=== PATIENT | female | born 1940 | race Caucasian/White ===

== ENCOUNTER 2018-03-17 14:04 | Emergency (ER) | payer OTHER, MEDICARE ==
[~2018-03-17 14:04] MED LIST: CARAFATE1 GM/10 M1 PO
--- NOTE | 2018-03-17 14:26 | ED GENERAL ADULT ---
History of Present Illness General Chief Complaint: Fall Stated Complaint: BIBA RT SHOULDER PAIN/BACK PAIN S/P FALL Source: patient, family Exam Limitations: no limitations Vital Signs & Intake/Output Vital Signs & Intake/Output Vital Signs Date Time Temp Pulse Resp B/P B/P Pulse O2 O2 Flow FiO2 Mean Ox Delivery Rate 03/17 1817 98.3 74 20 129/60 95 Room Air 03/17 1413 98.0 75 17 157/72 94 Room Air Allergies Coded Allergies: aspirin (Intermediate, RASH 07/24/17) black pepper (Intermediate, HIVES 07/24/17) Reconcile Medications Clorazepate Dipotassium 7.5 MG TABLET 1 TAB PO DAILY UNKNOWN (Reported) Escitalopram Oxalate 10 MG TABLET 1 TAB PO DAILY MENTAL HEALTH (Reported) Ezetimibe (Zetia) 10 MG TABLET 1 TAB PO DAILY CHOLESTEROL (Reported) Rosuvastatin Calcium (Crestor) 40 MG TABLET 1 TAB PO DAILY CHOLESTEROL ( Reported) Tramadol HCl 50 MG TABLET 1 TAB PO Q12 PAIN NOT RESPONSDING TO [facility] Triage Note: PT TO ED WITH C/O RIGHT SHOULDER PAIN AND RIGHT BACK S/P MECHANICAL TRIP AND FALL AT HOME. PT WAS CLEANING HER PORCH WHEN SHE TRIPPED OVER A VACUUM AND FELL INTO STEP ON RIGHT SIDE. BRUISE NOTED TO FOREHEAD WELL. PT DENIES LOC OR BLOOD THINNERS. SLING APPLIED TO RIGHT ARM BY EMS. PT AMBULATORY AT SCENE. DENIES CERVICAL TENDERNESS. Triage Nurses Notes Reviewed? yes Onset: Abrupt Duration: hour(s): Timing: recent history HPI: 03/17/18 2:33 PM 77-year-old female status post mechanical fall on her porch complains of severe right shoulder pain she also hit her right ribs. She denies any abdominal pain , chest pain, neck pain or headache. She was on her porch swatting bee's, she lost her balance and fell onto her extended right arm. Past History Travel History Traveled to [place] past 21 day No Medical History Any Pertinent Medical History? see below for history Neurological: NONE EENT: NONE Cardiovascular: hyperlipidemia Respiratory: bronchitis, pneumonia Gastrointestinal: NONE Hepatic: NONE Renal: NONE Musculoskeletal: NONE Psychiatric: NONE Endocrine: NONE Blood Disorders: NONE Cancer(s): COLON CA NURSE SUBSTANCE ABUSE/Reproductive: NONE Surgical History Surgical History: non-contributory Psychosocial History What is your primary language Spanish Tobacco Use: Never used Family History Hx Contributory? No Review of Systems Review of Systems Constitutional: Denies: fever. EENTM: Denies: visual changes. Respiratory: Denies: short of breath. Cardiovascular: Denies: chest pain. GI: Denies: abdominal pain. Genitourinary: Reports: no symptoms. Musculoskeletal: Reports: see HPI. Skin: Denies: rash. Neurological/Psychological: Reports: no symptoms. Hematologic/Endocrine: Reports: no symptoms. Immunologic/Allergic: Reports: no symptoms. Physical Exam Physical Exam General Appearance: alert, awake, anxious, moderate distress Head: normal appearance, contusions Eyes: Bilateral: normal appearance, PERRL, EOMI. Ears, Nose, Throat: normal pharynx, normal ENT inspection Neck: normal inspection, supple Respiratory: normal breath sounds, chest non-tender, no respiratory distress Cardiovascular: regular rate/rhythm Peripheral Pulses: 4+ radial (R) Gastrointestinal: soft, non-tender Back: normal range of motion Extremities: swelling, tenderness (right shoulder) Neurologic/Psych: no motor/sensory deficits, awake, alert, oriented x 3 Skin: intact, normal color, warm/dry Core Measures ACS in differential dx? No CVA/TIA Diagnosis: No Sepsis Present: No Sepsis Focused Exam Completed? No Progress Differential Diagnoses I considered the following diagnoses in my evaluation of the patient: [Fracture, dislocation, head injury, other occult injuries] Plan of Care: Current Medications Sig/Ryan Start time Last Medication Dose Stop Time Status Admin Sodium Chloride 1,000 ML ONCE ONE 03/17 1445 AC 03/17 (Normal Saline 0.9%) 03/17 2124 1451 Initial ED EKG: none Departure Departure Disposition: STILL A PATIENT Condition: Stable Clinical Impression Primary Impression: Proximal humerus fracture Secondary Impressions: Anterior dislocation of shoulder Referrals: Emeka DE LOS SANTOS,Kevin Gonsalez (PCP/Family) Departure Forms: Customer Survey General Discharge Information Prescriptions: Current Visit Scripts Tramadol HCl 1 TAB PO Q12 #8 TAB Comments TECHNIQUE: Three views of the right shoulder. 4 views of the right elbow FINDINGS: Right shoulder: Moderate osteophytosis is present at the acromioclavicular joint. There is been successful reduction of the humeral head at the glenoid fossa. The avulsed fracture at the greater tuberosity measures 2.3 cm AP and is displaced cephalad by 5 mm. Minimal glenohumeral osteophytes. No Bankart fractures are identified. Soft tissues are swollen. Right elbow: No acute fracture or malalignment. Chronic ossific densities at the lateral humeral epicondyle are consistent with prior common extensor tendinosis and enthesopathy. No acute fractures are identified. No joint effusion. Minimal osteoarthritis is characterized by small marginal osteophytes. No joint space narrowing. IMPRESSION: 1. Successful reduction of the right shoulder. Greater tuberosity fracture fragment is mildly displaced. No appreciable Bankart fracture. 2. Minimal osteoarthritis of the right elbow. No elbow fracture or effusion. DICTATED BY: Caleb Christian MD DATE/TIME DICTATED:03/17/181705 SQL PROGRAMMER:ADRIANNE DATE/TIME TRANSCRIBED:03/17/181705 CONFIDENTIAL, DO NOT COPY WITHOUT APPROPRIATE AUTHORIZATION. <Electronically signed in Other Vendor System> SIGNED BY: Caleb Christian MD 03/17/181712 PATIENT: LEATHA DUQUE PRESENT AGE: 77 PATIENT ACCOUNT NO: [id number] : 42 LOCATION: [facility] ORDERING PHYSICIAN: Kenny MANLEY SERVICE DATE: 03/17/18 EXAM TYPE: CAT - CT ABD & PELVIS W/O IV CONTRAS; CT CHEST WO IV CONTRAST EXAMINATION: CT CHEST WITHOUT CONTRAST CT ABDOMEN AND PELVIS WITHOUT CONTRAST CLINICAL INFORMATION: Thoracic pain after fall. Low back pain after fall. Dislocated shoulder. COMPARISON: CT lumbar spine dated 09/09/2011. TECHNIQUE: Multidetector volumetric imaging was performed from the thoracic inlet through the pubic symphysis without intravenous contrast. Sagittal and coronal reformatted images were obtained on the technologist's workstation. DLP: 349.7 mGy-cm FINDINGS: -CHEST- LUNG: Minimal dependent atelectasis. No consolidation, pneumothorax, or pleural effusion. Central airways are clear. Linear atelectasis is present in the inferior aspect of the anterior segment of the right upper lobe as well. MEDIASTINUM: Calcific atherosclerosis is present in the thoracic aorta. Thoracic aorta is normal in size. No evidence of mediastinal vascular injury. No fluid collections. Heart is normal in size. No pericardial effusion. Thyroid gland is unremarkable. No mediastinal adenopathy is apparent. PERICARDIUM/PLEURA: No significant effusion. No pleural mass or thickening. CHEST WALL/AXILLA: Unremarkable. -ABDOMEN/PELVIS- LIVER, GALLBLADDER, BILIARY TREE: The liver is normal in size, shape, and attenuation. No focal hepatic lesion or biliary ductal dilatation is present. The gallbladder is unremarkable with no evidence of radiopaque gallstones, gallbladder wall thickening, or obvious pericholecystic inflammatory changes. PANCREAS: Unremarkable. SPLEEN: Unremarkable. ADRENAL GLANDS: Unremarkable. KIDNEYS AND URETERS: There is a large 4.5 cm water density (12 Hounsfield units) left parapelvic cysts. Kidneys are normal in size with normal cortical thickness. No hydronephrosis or urolithiasis. No perinephric stranding. BLADDER: Unremarkable. GASTROINTESTINAL TRACT: Stomach, small bowel, and colon are normal in caliber. Ileocolonic anastomosis is present in the central abdomen with absence of the right hemicolon, consistent with prior partial colectomy. No bowel wall thickening or surrounding inflammatory changes. No intraperitoneal free fluid or free air. ABDOMINAL WALL: No significant hernia is appreciated. VASCULATURE: Atherosclerotic calcifications are present in the abdominal aorta and iliac arteries. No aneurysmal dilatation. LYMPH NODES: No lymphadenopathy . PELVIC VISCERA: A calcified uterine fibroid is present at the anterior aspect of uterine body. Uterus appears relatively small. Ovaries are not well seen and are unremarkable. OSSEUS STRUCTURES: Right humeral head is appropriately situated at the glenoid. A fracture of the right greater tuberosity is partially imaged on this study. A fat fluid level is present in the overlying subacromial subdeltoid bursa. No additional fractures are identified in the chest. The ribs appear intact. There is mild degenerative spondylosis in the thoracic spine. More moderate degenerative disc disease is present in the lumbar spine at L3-L4 and L4-5 with grade 1 anterolisthesis of L4 on L5 and L5 on S1 as well as severe facet arthropathy at these levels. More mild degenerative disc disease is present at other levels. No acute fractures are identified. Vertebral body heights are normal. Hip joints appear relatively well-preserved. No proximal femoral fractures are identified. IMPRESSION: 1. Partial imaging of the right humeral head fracture. Humeral head is appropriately positioned at the glenoid without evidence of a Bankart fracture. 2. Otherwise, no additional acute abnormalities are identified in the chest, abdomen, and pelvis 3. Mild degenerative disc disease in the thoracic spine. No fractures. 4. Moderate degenerative disc disease and severe facet arthropathy in the lumbar spine at L3-L4 and L4-5 with grade 1 anterolisthesis of L3 on L4 and L4 on L5. 5. Calcific uterine fibroid. DICTATED BY: Caleb Christian MD DATE/TIME DICTATED:03/17/181709 SQL PROGRAMMER:HEARD DATE/TIME TRANSCRIBED:03/17/181709 CONFIDENTIAL, DO NOT COPY WITHOUT APPROPRIATE AUTHORIZATION. <Electronically signed in Other Vendor System> SIGNED BY: Caleb Christian MD 03/17/181725 PATIENT: LEATHA DUQUE PRESENT AGE: 77 PATIENT ACCOUNT NO: [id number] : 42 LOCATION: [facility] ORDERING PHYSICIAN: Kenny MANLEY SERVICE DATE: 03/17/18 EXAM TYPE: CAT - CT CERV SPINE WO IV CONTRAST; CT HEAD WO IV CONTRAST EXAMINATION: CT HEAD WITHOUT CONTRAST CT CERVICAL SPINE WITHOUT CONTRAST CLINICAL INFORMATION: Multiple injuries. Fall with head strike. COMPARISON: None TECHNIQUE: CT of the head and cervical spine were performed without intravenous contrast. Multiplanar reformats were rendered and reviewed. DLP: 837 mGy-cm. FINDINGS: CT head: There is no intracranial hemorrhage, extra-axial collection, or calvarial fracture. There is no mass, mass effect, or CT evidence of large territory infarction. There is mild diffuse brain parenchymal volume loss with prominence of the ventricles and sulci. There is no hydrocephalus. The visualized paranasal sinuses and mastoid air cells are clear. CT cervical spine: There is trace anterolisthesis of C2 on C3 and C3 on C4 with alignment otherwise maintained. No acute fracture is seen. The craniovertebral junction is intact. There is multilevel disc height loss most advanced at C5-C6 with associated degenerative endplate spurring. The visualized soft tissues appear normal. The lung apices are clear. IMPRESSION: CT head: - No acute intracranial abnormality. CT cervical spine: - No cervical spine fracture or traumatic malalignment. Multilevel degenerative spondylotic changes without high-grade spinal canal stenosis. DICTATED BY: Sweta Marsh MD DATE/TIME DICTATED:03/17/181651 SQL PROGRAMMER:ADRIANNE DATE/TIME TRANSCRIBED:03/17/181651 CONFIDENTIAL, DO NOT COPY WITHOUT APPROPRIATE AUTHORIZATION. <Electronically signed in Other Vendor System> SIGNED BY: Sweta Marsh MD 03/17/18 1705 The patient was treated with IV Tylenol IV morphine for pain. The x-rays were reviewed with Severo Daniels MD who agreed with the plan of care. Procedure Reduction of right anterior shoulder dislocation. The patient was placed supine. She had received morphine for pain but did not require moderate sedation. Gentle traction was done with external rotation, with the assistant golf course superintendent of the surgical PA Deejay Parada. The shoulder was reduced without difficulty, and the patient was placed in a shoulder immobilizer. Postreduction films were discussed with Dr. Daniels. She was told to follow-up with Severo Daniels MD in the a.m. Tylenol for pain. Tramadol only if needed. Critical Care Note Critical Care Note Critical Care Time: 30-74 min
--- NOTE | 2018-03-17 15:09 | RADIOLOGY REPORT ---
EXAMINATION: XR SHOULDER, RIGHT CLINICAL INFORMATION: Right shoulder pain after fall. COMPARISON: None TECHNIQUE: Three views of the right shoulder. FINDINGS: The humerus is dislocated anteriorly relative to the glenoid with an associated 2 cm avulsion fracture at the superolateral margin of the humeral head as well as a Hill-Sachs impaction deformity. No definite Bankart fracture. Mild acromioclavicular osteoarthritis. Bones are osteopenic. IMPRESSION: Anterior shoulder dislocation with a Hill-Sachs impaction fracture and an avulsion fracture at the greater tuberosity.
[2018-03-17] MEDS ORDERED: ESCITALOPRAM OX10 MG PO (15:35)
[2018-03-17] MEDS ORDERED: CLORAZEPATE DI7.5 M1 PO (15:35)
[2018-03-17] MEDS ORDERED: ZETIA10 M1 PO (15:36)
[2018-03-17] MEDS ORDERED: CRESTOR40 M2 PO (15:36)
--- NOTE | 2018-03-17 17:05 | CT SCAN REPORT ---
EXAMINATION: CT HEAD WITHOUT CONTRAST CT CERVICAL SPINE WITHOUT CONTRAST CLINICAL INFORMATION: Multiple injuries. Fall with head strike. COMPARISON: None TECHNIQUE: CT of the head and cervical spine were performed without intravenous contrast. Multiplanar reformats were rendered and reviewed. DLP: 837 mGy-cm. FINDINGS: CT head: There is no intracranial hemorrhage, extra-axial collection, or calvarial fracture. There is no mass, mass effect, or CT evidence of large territory infarction. There is mild diffuse brain parenchymal volume loss with prominence of the ventricles and sulci. There is no hydrocephalus. The visualized paranasal sinuses and mastoid air cells are clear. CT cervical spine: There is trace anterolisthesis of C2 on C3 and C3 on C4 with alignment otherwise maintained. No acute fracture is seen. The craniovertebral junction is intact. There is multilevel disc height loss most advanced at C5-C6 with associated degenerative endplate spurring. The visualized soft tissues appear normal. The lung apices are clear. IMPRESSION: CT head: - No acute intracranial abnormality. CT cervical spine: - No cervical spine fracture or traumatic malalignment. Multilevel degenerative spondylotic changes without high-grade spinal canal stenosis.
--- NOTE | 2018-03-17 17:13 | RADIOLOGY REPORT ---
EXAMINATION: XR SHOULDER, RIGHT XR ELBOW, RIGHT CLINICAL INFORMATION: Right shoulder status post reduction. Right elbow pain after fall. COMPARISON: None TECHNIQUE: Three views of the right shoulder. 4 views of the right elbow FINDINGS: Right shoulder: Moderate osteophytosis is present at the acromioclavicular joint. There is been successful reduction of the humeral head at the glenoid fossa. The avulsed fracture at the greater tuberosity measures 2.3 cm AP and is displaced cephalad by 5 mm. Minimal glenohumeral osteophytes. No Bankart fractures are identified. Soft tissues are swollen. Right elbow: No acute fracture or malalignment. Chronic ossific densities at the lateral humeral epicondyle are consistent with prior common extensor tendinosis and enthesopathy. No acute fractures are identified. No joint effusion. Minimal osteoarthritis is characterized by small marginal osteophytes. No joint space narrowing. IMPRESSION: 1. Successful reduction of the right shoulder. Greater tuberosity fracture fragment is mildly displaced. No appreciable Bankart fracture. 2. Minimal osteoarthritis of the right elbow. No elbow fracture or effusion.
--- NOTE | 2018-03-17 17:26 | CT SCAN REPORT ---
EXAMINATION: CT CHEST WITHOUT CONTRAST CT ABDOMEN AND PELVIS WITHOUT CONTRAST CLINICAL INFORMATION: Thoracic pain after fall. Low back pain after fall. Dislocated shoulder. COMPARISON: CT lumbar spine dated 09/09/2011. TECHNIQUE: Multidetector volumetric imaging was performed from the thoracic inlet through the pubic symphysis without intravenous contrast. Sagittal and coronal reformatted images were obtained on the technologist's workstation. DLP: 349.7 mGy-cm FINDINGS: -CHEST- LUNG: Minimal dependent atelectasis. No consolidation, pneumothorax, or pleural effusion. Central airways are clear. Linear atelectasis is present in the inferior aspect of the anterior segment of the right upper lobe as well. MEDIASTINUM: Calcific atherosclerosis is present in the thoracic aorta. Thoracic aorta is normal in size. No evidence of mediastinal vascular injury. No fluid collections. Heart is normal in size. No pericardial effusion. Thyroid gland is unremarkable. No mediastinal adenopathy is apparent. PERICARDIUM/PLEURA: No significant effusion. No pleural mass or thickening. CHEST WALL/AXILLA: Unremarkable. -ABDOMEN/PELVIS- LIVER, GALLBLADDER, BILIARY TREE: The liver is normal in size, shape, and attenuation. No focal hepatic lesion or biliary ductal dilatation is present. The gallbladder is unremarkable with no evidence of radiopaque gallstones, gallbladder wall thickening, or obvious pericholecystic inflammatory changes. PANCREAS: Unremarkable. SPLEEN: Unremarkable. ADRENAL GLANDS: Unremarkable. KIDNEYS AND URETERS: There is a large 4.5 cm water density (12 Hounsfield units) left parapelvic cysts. Kidneys are normal in size with normal cortical thickness. No hydronephrosis or urolithiasis. No perinephric stranding. BLADDER: Unremarkable. GASTROINTESTINAL TRACT: Stomach, small bowel, and colon are normal in caliber. Ileocolonic anastomosis is present in the central abdomen with absence of the right hemicolon, consistent with prior partial colectomy. No bowel wall thickening or surrounding inflammatory changes. No intraperitoneal free fluid or free air. ABDOMINAL WALL: No significant hernia is appreciated. VASCULATURE: Atherosclerotic calcifications are present in the abdominal aorta and iliac arteries. No aneurysmal dilatation. LYMPH NODES: No lymphadenopathy . PELVIC VISCERA: A calcified uterine fibroid is present at the anterior aspect of uterine body. Uterus appears relatively small. Ovaries are not well seen and are unremarkable. OSSEUS STRUCTURES: Right humeral head is appropriately situated at the glenoid. A fracture of the right greater tuberosity is partially imaged on this study. A fat fluid level is present in the overlying subacromial subdeltoid bursa. No additional fractures are identified in the chest. The ribs appear intact. There is mild degenerative spondylosis in the thoracic spine. More moderate degenerative disc disease is present in the lumbar spine at L3-L4 and L4-5 with grade 1 anterolisthesis of L4 on L5 and L5 on S1 as well as severe facet arthropathy at these levels. More mild degenerative disc disease is present at other levels. No acute fractures are identified. Vertebral body heights are normal. Hip joints appear relatively well-preserved. No proximal femoral fractures are identified. IMPRESSION: 1. Partial imaging of the right humeral head fracture. Humeral head is appropriately positioned at the glenoid without evidence of a Bankart fracture. 2. Otherwise, no additional acute abnormalities are identified in the chest, abdomen, and pelvis 3. Mild degenerative disc disease in the thoracic spine. No fractures. 4. Moderate degenerative disc disease and severe facet arthropathy in the lumbar spine at L3-L4 and L4-5 with grade 1 anterolisthesis of L3 on L4 and L4 on L5. 5. Calcific uterine fibroid.
[2018-03-17 18:17] VITALS: BP 129/60
[2018-03-17] MEDS ORDERED: TRAMADOL HCL50 M1 PO (18:30)
== END 2018-03-17 18:41 ==
LOC: ERH 14:04
DX: S42.201A Unspecified fracture of upper end of right humerus, initial encounter for closed fracture (principal); S43.004A Unspecified dislocation of right shoulder joint, initial encounter; W17.89XA Other fall from one level to another, initial encounter; Y92.009 Unspecified place in unspecified non-institutional (private) residence as the place of occurrence of the external cause; E78.5 Hyperlipidemia, unspecified
CPT/HCPCS: 73030-RT; 73080-RT; 74176; 96361; 96374; 96375; 96376; J0131

== ENCOUNTER → 2018-03-31 | Day surgery (SDC) | payer OTHER ==
[~2018-03-31] VITALS: Ht 157.5 cm; Wt 55.8 kg
[~2018-03-31] MED LIST changes: +CLORAZEPATE DI7.5 M1 PO; +CRESTOR40 M2 PO; +ESCITALOPRAM OX10 MG PO; +TRAMADOL HCL50 M1 PO; +ZETIA10 M1 PO
--- NOTE | 2018-03-31 08:22 | Operative Report ---
Operative/Inv Procedure Report Surgery Date: 03/31/18 Name of Procedure: Right shoulder open loose body removal, rotator cuff repair Pre-Operative Diagnosis: Right shoulder greater tuberosity fracture Post-Operative Diagnosis: Right shoulder greater tuberosity fracture Estimated Blood Loss: scant Surgeon/Brand Lead: Frances DE LOS SANTOS,VINEET Rose Anesthesia: general endotracheal tube, block Complications: None Condition: Stable to PACU Operative Indication: This is a 77-year-old female who sustained a fall. X-rays showed a fracture dislocation of the shoulder. Postreduction x-ray showed a persistently displaced greater tuberosity fracture. Risks and benefits of the procedure were discussed with the patient at length. Risks include but are not limited to nerve damage, muscle damage, infection, blood loss, blood clots, pulmonary embolus, and even . The patient agreed to the above risks and elected to proceed with surgery. Operative/Procedure Note Note: The patient was placed on the operating table and general anesthesia was induced by the anesthesia team. The patient was then positioned into the beachchair position. The upper extremity was prepped and draped in the normal sterile fashion. The patient received IV antibiotics prior to incision. A timeout was performed and the site marking was visualized prior to incision. An incision was then made just lateral to the acromion extending 5 cm distally. Care was taken not to extend the incision to distally in order to protect against injury to the axillary nerve. The deltoid fascia was incised. The deltoid muscle was then split along its raphae. The subdeltoid bursa was then resected. The fracture site was identified and debrided. The wound was irrigated. A #2 orthocord suture was then placed at the bone tendon interface of the rotator cuff which were used to reduce the fracture. There is no at the fracture fragment was small and thin sufficient quality to accept a screw for open reduction internal fixation. The fragment was removed. A 5.5 mm helicoil anchor was then placed at the void where the fracture fragment was avulsed from. The sutures were shuttled with a free needle through the rotator cuff tendon. This was tied down medially with a locking knot and several half hitches. The sutures from the anchor as well as the orthocord suture were then crisscrossed over the top and fixed with a 5.5 mm multifix anchor. The wound was copiously irrigated. The deltoid fascia was closed with 0 Vicryl suture. The skin was closed with 2-0 Vicryl suture and a running subcuticular 3 -0 Prolene suture. A dry sterile dressing was applied. The patient was transferred to PACU in stable condition.
--- NOTE | 2018-03-31 12:08 | RADIOLOGY REPORT ---
EXAMINATION: Intraoperative fluoroscopy CLINICAL INFORMATION: Right shoulder ORIF COMPARISON: Right shoulder radiographs 03/17/2018 TECHNIQUE: Intraoperative fluoroscopy was provided for use by Dr. Daniels. A total of 8 images were saved to PACS. A radiologist was not present during imaging. TOTAL FLUOROSCOPIC TIME: 21 seconds FINDINGS\E\IMPRESSION: Intraoperative fluoroscopy provided for use by Dr. Daniels. Please see operative note for detailed findings.
== END ==
LOC: STS 02:10
DX: S42.251A Displaced fracture of greater tuberosity of right humerus, initial encounter for closed fracture (principal); W19.XXXA Unspecified fall, initial encounter; Z85.038 Personal history of other malignant neoplasm of large intestine
CPT/HCPCS: 76000; J0690